=== PATIENT | female | born 1970 | race Caucasian/White ===

== ENCOUNTER 2020-03-21 12:41 | Emergency (ER) | payer OTHER ==
[~2020-03-21] VITALS: Ht 167.6 cm; Wt 101.6 kg
[2020-03-21 13:00] VITALS: Ht 167.6 cm; Wt 101.6 kg
[2020-03-21 14:37] VITALS: BP 127/87
== END 2020-03-21 14:37 | disposition home or self-care (01) ==
LOC: ED 12:41
DX: J86.9 Pyothorax without fistula (principal); E66.9 Obesity, unspecified; Z68.36 Body mass index [BMI] 36.0-36.9, adult